=== PATIENT | female | born 1965 | race Caucasian/White ===

== ENCOUNTER 2021-03-27 16:09 | Inpatient (IN) ==
[2021-03-27] MEDS ORDERED: Ondansetron 4 MG/2 ML VIAL IVP ONE (16:14)
[2021-03-27] MEDS ORDERED: *HR* FentaNYL (PF) 100 MCG/2 ML VIAL IVP ONE (16:14)
[2021-03-27] MEDS ORDERED: 0.9 % Sodium Chloride 1,000 ML IVC SCH (16:15)
[2021-03-27] MEDS ORDERED: 0.9 % Sodium Chloride 1,000 ML ONE (16:36)
[2021-03-27] MEDS ORDERED: *HR* Heparin 5,000 UNIT/ML VIAL ONE (16:36)
[2021-03-27] MEDS ORDERED: *HR* Heparin 5,000 UNIT/ML VIAL IVP ONE (16:40)
[2021-03-27] MEDS ORDERED: ISOVUE-370 200 ML INFUS..BTL ONE (16:41)
[2021-03-27] MEDS ORDERED: *HR* Heparin 10,000 UNIT/10 ML VIAL ONE (16:41)
[2021-03-27] MEDS ORDERED: 0.9 % Sodium Chloride 2,000 ML ONE (16:41)
[2021-03-27] MEDS ORDERED: Heparin 1,000 UNITS/500 mL 500 ML ONE (16:41)
[2021-03-27] MEDS ORDERED: Nitroglycerin 1,000 MCG/5 ML VIAL IV ONE (16:41)
[2021-03-27] MEDS ORDERED: Tirofiban 12.5 MG/250ML 12.5 MG/250 ML BAG ONE (16:41)
[2021-03-27] MEDS ORDERED: *HR* FentaNYL (PF) 100 MCG/2 ML VIAL ONE (16:58)
[2021-03-27] MEDS ORDERED: *HR* Midazolam HCl 2 MG/2 ML VIAL ONE (16:58)
[2021-03-27 17:25] LABS: Basophils % 0.5 %; Eosinophils # 0.2 K/mcL (0.0-0.6); Eosinophils % 2.3 %; Hematocrit 43.1 % (35.3-44.9); Immature Granulocytes % 0.5 % (0-4); Lymphocytes # 1.9 K/mcL (0.6-4.6); Lymphocytes % 29.5 %; Mean Corpuscular HGB Conc 32.5 g/dL (31.6-35.5); Mean Corpuscular Hemoglobin 30.8 pg (28.0-33.3); Mean Corpuscular Volume 94.7 fL (83.0-100.0); Mean Platelet Volume 10.1 fL (9.4-12.4); Monocytes # 0.5 K/mcL (0.0-1.3); Monocytes % 8.1 %; Neutrophils # 3.9 K/mcL (1.6-8.9); Platelet Count 290 K/mcL (140-400); Red Blood Count 4.55 M/mcL (3.82-4.97); Red Cell Distribution Width 14.4 % (11.5-14.5); Segmented Neutrophils % 59.1 %; White Blood Count 6.6 K/mcL (4.3-11.1)
[2021-03-27 17:43] LABS: BUN/Creatinine Ratio 7 (6-26); Blood Urea Nitrogen 7 mg/dL (6-20); Calcium 9.2 mg/dL (8.6-10.3); Carbon Dioxide 23 mEq/L (23-29); Chloride 108 mEq/L (98-107); Glucose 131 mg/dL (70-105); Osmolality,Calculated 290 (280-300); Potassium 3.5 mEq/L (3.5-5.1); Sodium 140 mEq/L (136-145); Troponin I < 0.03 ng/mL (< 0.04); eGFR For African Americans > 60 (> 60); eGFR For Non-African Americans 59 (> 60)
[2021-03-27 17:48] LABS: Prothrombin Time 11.7 Seconds (9.4-12.1)
[2021-03-27 17:51] LABS: Activated Partial Thrombo Time 29.7 Seconds (26.0-36.0)
[2021-03-27] MEDS ORDERED: Perflutren Lipid Microsphere 1.3 ML in 0.9 % Sodium Chloride 8.7 ML IVP PRN (18:13)
[2021-03-27] MEDS ORDERED: Acetaminophen/Aspirin/Caffeine TABLET PO ONE (20:14)
[2021-03-27] MEDS ORDERED: Acetaminophen/Butalbital/CaffeineTABLET PO ONE (20:42)
[2021-03-27] MEDS: *HR* Ticagrelor 90 MG TABLET PO SCH (20:43)
[2021-03-28] MEDS ORDERED: Dextrose Gel 15 GM/37.5 ML TUBE PO PRN ×2 (01:59)
[2021-03-28] MEDS ORDERED: D5% in Water 1,000 ML IVC PRN (01:59)
[2021-03-28] MEDS ORDERED: *HR* Dextrose 50 % in Water (Vial) 50 ML VIAL IVP PRN (01:59)
[2021-03-28] MEDS ORDERED: Naloxone 0.4 MG/ML INJ IVP PRN (02:00)
[2021-03-28] MEDS ORDERED: Ondansetron 4 MG/2 ML VIAL IVP PRN (02:00)
[2021-03-28 03:43] LABS: Basophils % 0.4 %; Eosinophils # 0.2 K/mcL (0.0-0.6); Eosinophils % 2.2 %; Hematocrit 37.3 % (35.3-44.9); Immature Granulocytes % 0.5 % (0-4); Lymphocytes # 2.3 K/mcL (0.6-4.6); Mean Corpuscular HGB Conc 33.2 g/dL (31.6-35.5); Mean Corpuscular Hemoglobin 31.4 pg (28.0-33.3); Mean Corpuscular Volume 94.4 fL (83.0-100.0); Mean Platelet Volume 10.2 fL (9.4-12.4); Monocytes # 0.5 K/mcL (0.0-1.3); Neutrophils # 4.4 K/mcL (1.6-8.9); Platelet Count 260 K/mcL (140-400); Red Blood Count 3.95 M/mcL (3.82-4.97); Red Cell Distribution Width 14.4 % (11.5-14.5); Segmented Neutrophils % 58.9 %; White Blood Count 7.4 K/mcL (4.3-11.1)
[2021-03-28 03:46] LABS: Hemoglobin 12.4 g/dL (11.5-15.4)
[2021-03-28 03:58] LABS: BUN/Creatinine Ratio 9 (6-26); Blood Urea Nitrogen 7 mg/dL (6-20); Calcium 8.5 mg/dL (8.6-10.3); Carbon Dioxide 22 mEq/L (23-29); Chloride 108 mEq/L (98-107); Glucose 142 mg/dL (70-105); Osmolality,Calculated 296 (280-300); Potassium 3.5 mEq/L (3.5-5.1); Sodium 143 mEq/L (136-145); eGFR For African Americans > 60 (> 60); eGFR For Non-African Americans > 60 (> 60)
[2021-03-28 04:00] LABS: Chol/HDL Ratio 4.3 (0-4.9); Magnesium 1.7 mg/dL (1.6-2.6)
[2021-03-28] MEDS: Insulin LISPRO 300 UNITS/3 ML VIAL SUBQ SCH ×2 (08:07→12:41)
[2021-03-28] MEDS: *HR* Ticagrelor 90 MG TABLET PO SCH (08:11)
[2021-03-28] MEDS ORDERED: Metoprolol XL (24 HR) Succ 50 MG TAB.ER.24H PO SCH (09:00)
[2021-03-28] MEDS ORDERED: Topiramate 100 MG TABLET PO SCH (09:00)
[2021-03-28] MEDS ORDERED: lisinopriL 10 MG TABLET PO SCH (09:00)
[2021-03-28] MEDS ORDERED: Aspirin 81 MG TAB.CHEW PO SCH (09:00)
[2021-03-28] MEDS ORDERED: *HR* OxyCODONE/APAP 5/325 TABLET PO SCH (09:00)
[2021-03-28] MEDS ORDERED: amLODIPine 5 MG TABLET PO SCH (09:00)
[2021-03-28] MEDS ORDERED: Gabapentin 300 MG CAPSULE PO SCH (09:00)
[2021-03-28] MEDS ORDERED: GI Cocktail 40 ML EACH PO ONE (10:57)
[2021-03-28 11:11] VITALS: BP 118/77
[2021-03-28 13:10] LABS: Bacteria,Urine Few per hpf (None-Few); Bilirubin,Urine Negative (Negative); Blood,Urine Moderate (Negative); Clarity,Urine Clear (Clear); Color,Urine Colorless (Yellow); Glucose,Urine (UA) Normal (Normal); Ketones,Urine Negative (Negative); Leukocyte Esterase,Urine Negative (Negative); Nitrite,Urine Negative (Negative); PH,Urine 6.5 pH Units (5.0-8.0); Protein,Urine Negative (Neg-Trace); RBC,Urine 0-3 per hpf (0-3); Specific Gravity,Urine 1.008 (1.010-1.025); Squamous Epithelial Cell,Urine Few per hpf (None-Few); Urobilinogen,Urine Normal (Normal); WBC,Urine 0-3 per hpf (0-3)
[2021-03-28] MEDS ORDERED: Insulin LISPRO 300 UNITS/3 ML VIAL SUBQ SCH (21:00)
[2021-03-31 13:54] LABS: Estimated Average Glucose 157 mg/dl; Hemoglobin A1C 7.1 %
== END 2021-03-28 14:50 | disposition home or self-care (01) | DRG 281 ==
LOC: EMEROOARM 16:09 → 2NENU 16:09
PROVIDERS: ADMIT Internal Medicine Cardiovascular Disease; ATTEND Internal Medicine Cardiovascular Disease

== ENCOUNTER 2022-04-13 20:36 | Observation (INO) ==
[2022-04-13 21:57] LABS: Basophils % 0.3 %; Eosinophils % 0.4 %; Hematocrit 39.9 % (35.3-44.9); Hemoglobin 14.1 g/dL (11.5-15.4); Immature Granulocytes % 0.3 % (0-4); Lymphocytes # 1.4 K/mcL (0.6-4.6); Lymphocytes % 20.8 %; Mean Corpuscular HGB Conc 35.3 g/dL (31.6-35.5); Mean Corpuscular Hemoglobin 31.1 pg (28.0-33.3); Mean Corpuscular Volume 87.9 fL (83.0-100.0); Mean Platelet Volume 10.1 fL (9.4-12.4); Monocytes # 0.4 K/mcL (0.0-1.3); Monocytes % 6.1 %; Neutrophils # 4.8 K/mcL (1.6-8.9); Platelet Count 263 K/mcL (140-400); Red Blood Count 4.54 M/mcL (3.82-4.97); Red Cell Distribution Width 13.5 % (11.5-14.5); Segmented Neutrophils % 72.1 %; White Blood Count 6.7 K/mcL (4.3-11.1)
[2022-04-13 22:15] LABS: Alanine Aminotransferase 11 Units/L (7-52); Albumin 3.8 g/dL (3.5-5.7); Albumin/Globulin Ratio 1.2 (1.1-2.2); Alkaline Phosphatase 64 Units/L (34-104); Aspartate Amino Transferase 15 Units/L (13-39); BUN/Creatinine Ratio 9 (6-26); Bilirubin,Direct 0.1 mg/dL (0.0-0.2); Bilirubin,Indirect 0.6 mg/dL (0.0-1.0); Bilirubin,Total 0.7 mg/dL (0.3-1.0); Blood Urea Nitrogen 6 mg/dL (6-20); Calcium 8.7 mg/dL (8.6-10.3); Carbon Dioxide 24 mEq/L (23-29); Chloride 102 mEq/L (98-107); Globulin 3.2 g/dL (2.4-3.5); Glucose 138 mg/dL (70-105); Lipase 14 Units/L (11-82); Osmolality,Calculated 282 (280-300); Potassium 2.7 mEq/L (3.5-5.1); Sodium 136 mEq/L (136-145); Troponin I < 0.03 ng/mL (< 0.04); eGFR For African Americans > 60 (> 60); eGFR For Non-African Americans > 60 (> 60)
[2022-04-13] MEDS ORDERED: Morphine Sulfate 2 MG/ML SYRINGE IVP ONE (22:28)
[2022-04-13] MEDS ORDERED: Iopamidol - 370 500 ML MLS IVP ONE (22:30)
[2022-04-13 23:03] LABS: Adenovirus Not Detected (Not Detect); Bordetella Pertussis Not Detected (Not Detect); Chlamydophila pneumoniae Not Detected (Not Detect); Coronavirus 229E Not Detected (Not Detect); Coronavirus HKU1 Not Detected (Not Detect); Coronavirus NL63 Not Detected (Not Detect); Coronavirus OC43 Not Detected (Not Detect); Human Metapneumovirus Not Detected (Not Detect); Human Rhinovirus/Enterovirus Not Detected (Not Detect); Influenza A Subtype 2009 H1 Not Detected (Not Detect); Influenza B Not Detected (Not Detect); Mycoplasma pneumoniae Not Detected (Not Detect); Parainfluenza Virus 1 Not Detected (Not Detect); Parainfluenza Virus 2 Not Detected (Not Detect); Parainfluenza Virus 3 Not Detected (Not Detect); Parainfluenza Virus 4 Not Detected (Not Detect); Respiratory Syncytial Virus Not Detected (Not Detect); SARS-CoV-2 Not Detected (Not Detect)
[2022-04-13 23:24] LABS: Bilirubin,Urine Negative (Negative); Blood,Urine Negative (Negative); Clarity,Urine Clear (Clear); Color,Urine Light-Yellow (Yellow); Glucose,Urine (UA) Normal (Normal); Ketones,Urine Negative (Negative); Leukocyte Esterase,Urine Negative (Negative); Nitrite,Urine Negative (Negative); PH,Urine 6.5 pH Units (5.0-8.0); Protein,Urine Negative (Neg-Trace); Specific Gravity,Urine 1.011 (1.010-1.025)
[2022-04-13] MEDS: 0.9 % Sodium Chloride 1,000 ML IV ONE (23:45)
[2022-04-14 00:34] LABS: INR 1.2; Prothrombin Time 13.6 Seconds (9.4-12.1)
[2022-04-14 00:36] LABS: Activated Partial Thrombo Time 28.2 Seconds (26.0-36.0)
[2022-04-14] MEDS ORDERED: cefTRIAXone 1,000 MG in 0.9 % Sodium Chloride Mini Bag 100 ML IVPB ONE (01:21)
[2022-04-14] MEDS ORDERED: MetroNIDAZOLE 500 MG/100 ML 500 MG/100 ML BAG IVPB ONE (01:22)
[2022-04-14] MEDS ORDERED: Morphine Sulfate 2 MG/ML SYRINGE IVP ONE (01:23)
[2022-04-14] MEDS ORDERED: Ondansetron ODT 4 MG TAB.RAPDIS SL PRN ×2 (02:53→19:26)
[2022-04-14] MEDS ORDERED: Naloxone 0.4 MG/ML INJ IVP PRN ×2 (02:53→19:26)
[2022-04-14] MEDS ORDERED: Melatonin 3 MG TABLET PO PRN ×2 (02:53→19:26)
[2022-04-14] MEDS ORDERED: 0.9 % Sodium Chloride 1,000 ML ONE (03:06)
[2022-04-14] MEDS: 0.9 % Sodium Chloride 1,000 ML IV ONE (03:13)
[2022-04-14] MEDS ORDERED: *HR* HYDROmorphone 2 MG TABLET PO PRN (04:00)
[2022-04-14] MEDS ORDERED: D5% in Water 1,000 ML IVC PRN ×2 (04:20→19:26)
[2022-04-14] MEDS ORDERED: *HR* Dextrose 50 % in Water (Syg) 50 ML SYRINGE IVP PRN ×2 (04:20→19:26)
[2022-04-14] MEDS ORDERED: Dextrose Gel 15 GM/37.5 ML TUBE PO PRN ×4 (04:20→19:26)
[2022-04-14] MEDS ORDERED: *HR* OxyCODONE Immed Rel 5 MG TABLET PO PRN (05:19)
[2022-04-14 05:21] LABS: Hematocrit 37.2 % (35.3-44.9); Hemoglobin 12.7 g/dL (11.5-15.4); Mean Corpuscular HGB Conc 34.1 g/dL (31.6-35.5); Mean Corpuscular Hemoglobin 30.7 pg (28.0-33.3); Mean Corpuscular Volume 89.9 fL (83.0-100.0); Mean Platelet Volume 10.1 fL (9.4-12.4); Platelet Count 238 K/mcL (140-400); Red Blood Count 4.14 M/mcL (3.82-4.97); Red Cell Distribution Width 13.7 % (11.5-14.5); White Blood Count 4.9 K/mcL (4.3-11.1)
[2022-04-14] MEDS ORDERED: Nicotine 7 MG PATCH.TD24 TD PRN ×2 (05:30→19:26)
[2022-04-14 05:31] LABS: Magnesium 1.3 mg/dL (1.6-2.6); Phosphorous 2.5 mg/dL (2.7-4.5)
[2022-04-14 05:34] LABS: Alanine Aminotransferase 8 Units/L (7-52); Albumin 3.4 g/dL (3.5-5.7); Albumin/Globulin Ratio 1.3 (1.1-2.2); Alkaline Phosphatase 54 Units/L (34-104); Aspartate Amino Transferase 15 Units/L (13-39); BUN/Creatinine Ratio 7 (6-26); Bilirubin,Total 0.4 mg/dL (0.3-1.0); Blood Urea Nitrogen 5 mg/dL (6-20); Calcium 7.8 mg/dL (8.6-10.3); Carbon Dioxide 27 mEq/L (23-29); Chloride 107 mEq/L (98-107); Globulin 2.6 g/dL (2.4-3.5); Glucose 93 mg/dL (70-105); Osmolality,Calculated 287 (280-300); Potassium 3.2 mEq/L (3.5-5.1); Sodium 140 mEq/L (136-145); eGFR For African Americans > 60 (> 60); eGFR For Non-African Americans > 60 (> 60)
[2022-04-14] MEDS ORDERED: GI Cocktail 40 ML EACH PO ONE (08:11)
[2022-04-14] MEDS: Insulin LISPRO 300 UNITS/3 ML VIAL SUBQ SCH ×3 (08:50→19:24)
[2022-04-14] MEDS: MetroNIDAZOLE 500 MG/100 ML 500 MG/100 ML BAG IVPB SCH ×3 (09:25→21:41)
[2022-04-14] MEDS: 0.9 % Sodium Chloride 1,000 ML IVC SCH (09:28)
[2022-04-14] MEDS ORDERED: Ondansetron 4 MG/2 ML VIAL IVP PRN (10:15)
[2022-04-14] MEDS ORDERED: Promethazine 6.25 MG in Water for inj. (sterile) 20 ML IVPB PRN (10:15)
[2022-04-14] MEDS ORDERED: *HR* Midazolam HCl 2 MG/2 ML VIAL ONE (12:48)
[2022-04-14] MEDS ORDERED: *HR* Propofol 200 MG/20 ML VIAL IVP ONE (12:48)
[2022-04-14] MEDS ORDERED: Ondansetron 4 MG/2 ML VIAL ONE (12:48)
[2022-04-14] MEDS ORDERED: *HR* FentaNYL (PF) 100 MCG/2 ML VIAL ONE ×2 (12:48→13:58)
[2022-04-14] MEDS ORDERED: Lidocaine HCL 4 ML Topical Solution (Laryng-O-Jet Kit Sterile Pak) TP ONE (12:48)
[2022-04-14] MEDS ORDERED: *HR* Rocuronium Bromide 50 MG/5 ML VIAL ONE (12:48)
[2022-04-14] MEDS ORDERED: Lidocaine -MPF 2% 5 ML VIAL ONE (12:48)
[2022-04-14] MEDS ORDERED: *HR* Etomidate 40 MG/20 ML VIAL IVP ONE (12:53)
[2022-04-14] MEDS ORDERED: *HR* Labetalol 20 MG/4 ML SYRINGE IVP ONE ×2 (14:06→15:16)
[2022-04-14] MEDS ORDERED: Acetaminophen IV 1,000 MG/100 ML BAG IVPB ONE (14:14)
[2022-04-14] MEDS ORDERED: Ketorolac 30 MG/ML VIAL ONE (14:16)
[2022-04-14] MEDS ORDERED: *HR* HYDROMORPHONE 2 MG/ML VIAL ONE (14:30)
[2022-04-14] MEDS: *HR* HYDROmorphone PF 0.5 MG/0.5 ML SYRINGE IVP PRN ×3 (14:50→15:13)
[2022-04-14] MEDS: *HR* Labetalol 20 MG/4 ML SYRINGE IVP PRN ×2 (15:18→15:40)
[2022-04-14] MEDS ORDERED: Ringers Solution, Lactated 500 ML ONE (15:49)
[2022-04-14] MEDS ORDERED: cefTRIAXone 2,000 MG in 0.9 % Sodium Chloride 20 ML IVP SCH (18:00)
[2022-04-14] MEDS ORDERED: Topiramate 100 MG TABLET PO SCH (21:00)
[2022-04-14] MEDS ORDERED: Ranolazine 500 MG TAB.ER.12H PO SCH (21:00)
[2022-04-14] MEDS ORDERED: *HR* Ticagrelor 90 MG TABLET PO SCH (21:00)
[2022-04-14] MEDS ORDERED: Metoprolol XL (24 HR) Succ 50 MG TAB.ER.24H PO SCH (21:00)
[2022-04-14] MEDS ORDERED: Gabapentin 300 MG CAPSULE PO SCH (21:00)
[2022-04-14] MEDS: Acetaminophen IV 1,000 MG/100 ML BAG IVPB SCH (21:27)
[2022-04-14] MEDS: *HR* OxyCODONE Immed Rel 5 MG TABLET PO PRN (21:38)
[2022-04-14] MEDS: Metoprolol XL (24 HR) Succ 50 MG TAB.ER.24H PO SCH (21:39)
[2022-04-14] MEDS: Gabapentin 300 MG CAPSULE PO SCH (21:39)
[2022-04-14] MEDS: Ranolazine 500 MG TAB.ER.12H PO SCH (21:39)
[2022-04-14] MEDS: Topiramate 100 MG TABLET PO SCH (21:40)
[2022-04-14] MEDS: *HR* Ticagrelor 90 MG TABLET PO SCH (21:40)
[2022-04-14] MEDS: *HR* Heparin 5,000 UNIT/ML VIAL SQ SCH (21:40)
[2022-04-14] MEDS: Pantoprazole 40 MG VIAL IVP SCH (21:41)
[2022-04-15] MEDS ORDERED: cefTRIAXone 2,000 MG in 0.9 % Sodium Chloride 20 ML IVP SCH (01:00)
[2022-04-15] MEDS: Insulin LISPRO 300 UNITS/3 ML VIAL SUBQ SCH ×3 (01:17→11:57)
[2022-04-15] MEDS: Acetaminophen IV 1,000 MG/100 ML BAG IVPB SCH ×3 (01:18→14:00)
[2022-04-15] MEDS: *HR* OxyCODONE Immed Rel 5 MG TABLET PO PRN ×2 (05:16→11:36)
[2022-04-15] MEDS: MetroNIDAZOLE 500 MG/100 ML 500 MG/100 ML BAG IVPB SCH (05:17)
[2022-04-15] MEDS: Pantoprazole 40 MG VIAL IVP SCH (05:17)
[2022-04-15] MEDS: *HR* Heparin 5,000 UNIT/ML VIAL SQ SCH (05:18)
[2022-04-15 05:42] LABS: Hematocrit 35.4 % (35.3-44.9); Hemoglobin 11.9 g/dL (11.5-15.4); Immature Granulocytes % 0.4 % (0-4); Lymphocytes # 0.8 K/mcL (0.6-4.6); Lymphocytes % 10.1 %; Mean Corpuscular HGB Conc 33.6 g/dL (31.6-35.5); Mean Corpuscular Hemoglobin 31.2 pg (28.0-33.3); Mean Corpuscular Volume 92.7 fL (83.0-100.0); Mean Platelet Volume 10.7 fL (9.4-12.4); Monocytes # 0.3 K/mcL (0.0-1.3); Monocytes % 4.1 %; Neutrophils # 6.9 K/mcL (1.6-8.9); Platelet Count 218 K/mcL (140-400); Red Blood Count 3.82 M/mcL (3.82-4.97); Red Cell Distribution Width 14.3 % (11.5-14.5); Segmented Neutrophils % 85.4 %
[2022-04-15 05:45] LABS: White Blood Count 8.1 K/mcL (4.3-11.1)
[2022-04-15 07:05] VITALS: TEMP 98.1
[2022-04-15] MEDS: 0.9 % Sodium Chloride 1,000 ML IVC SCH (07:20)
[2022-04-15] MEDS: Gabapentin 300 MG CAPSULE PO SCH (08:29)
[2022-04-15] MEDS: Metoprolol XL (24 HR) Succ 50 MG TAB.ER.24H PO SCH (08:30)
[2022-04-15] MEDS: Ranolazine 500 MG TAB.ER.12H PO SCH (08:30)
[2022-04-15] MEDS: *HR* Ticagrelor 90 MG TABLET PO SCH (08:30)
[2022-04-15] MEDS: Topiramate 100 MG TABLET PO SCH (08:31)
[2022-04-15 08:57] LABS: BUN/Creatinine Ratio 8 (6-26); Blood Urea Nitrogen 7 mg/dL (6-20); Calcium 7.9 mg/dL (8.6-10.3); Carbon Dioxide 26 mEq/L (23-29); Chloride 101 mEq/L (98-107); Glucose 127 mg/dL (70-105); Magnesium 1.2 mg/dL (1.6-2.6); Osmolality,Calculated 280 (280-300); Phosphorous 2.8 mg/dL (2.7-4.5); Potassium 3.1 mEq/L (3.5-5.1); Sodium 135 mEq/L (136-145); eGFR For African Americans > 60 (> 60); eGFR For Non-African Americans > 60 (> 60)
[2022-04-15] MEDS ORDERED: amLODIPine 5 MG TABLET PO SCH ×2 (09:00)
[2022-04-15] MEDS ORDERED: lisinopriL 10 MG TABLET PO SCH ×2 (09:00)
[2022-04-15] MEDS ORDERED: *HR* GlipiZIDE XL (24 HR) 2.5 MG TABLET PO SCH (09:00)
[2022-04-15] MEDS ORDERED: Aspirin 81 MG TAB.CHEW PO SCH ×2 (09:00)
[2022-04-15 10:26] VITALS: BP 168/72; PULSE 69; O2SAT 95
== END 2022-04-15 15:20 | disposition home or self-care (01) ==
LOC: 3BNU 20:36 → EMEROOARM 20:36 → 3BNU 04-14 11:40 → SUATTDRO 04-14 12:45
PROVIDERS: ADMIT Internal Medicine; ATTEND Internal Medicine